=== PATIENT | female | born 1985 | race Caucasian/White ===

== ENCOUNTER 2017-10-10 15:16 | Emergency (ER) | payer SELFPAY ==
[2017-10-10] MEDS: IBUPROFEN 600 MG TAB PO (16:15)
== END 2017-10-10 18:00 | disposition home or self-care (01) ==
LOC: FTE 15:16
DX: R68.84 Jaw pain (principal); F17.210 Nicotine dependence, cigarettes, uncomplicated; R51 Headache
CPT/HCPCS: 70450; 70486; 72125; 99285-25

== ENCOUNTER 2018-02-15 11:23 | Emergency (ER) | payer MEDICAID ==
[2018-02-15] MEDS: LORAZEPAM 1 MG TAB PO (12:18)
== END 2018-02-15 13:42 | disposition home or self-care (01) ==
LOC: FTE 11:23
DX: R00.2 Palpitations (principal); F17.210 Nicotine dependence, cigarettes, uncomplicated
CPT/HCPCS: 99283; Z7502